=== PATIENT | female | born 1980 | race Caucasian/White ===

== ENCOUNTER 2017-04-04 00:31 | Emergency (ER) | payer OTHER ==
[2017-04-04 00:41] VITALS: RESP 16; TEMP 97.9
[2017-04-04] MEDS ORDERED: NS 1,000 ML IV ONE ×2 (00:57→02:09)
[2017-04-04 01:08] LABS: % IMMATURE GRANULYOCYTES 0.2 % (0.0-1.1); ABSOLUTE IMMATURE GRANULOCYTES 0.02 10^3/uL (0.00-0.10); ADD DIFF? NO; ADD MORPH? NO; ADD SCAN? NO; ATYPICAL LYMPHOCYTE FLAG 0 (0-99); FRAGMENT RBC FLAG 0 (0-99); HEMATOCRIT 38.7 % (38.0-47.0); HEMOGLOBIN 13.6 g/dL (12.6-16.3); LEFT SHIFT FLG 0 (0-99); LIPEMIA HEMOLYSIS FLAG 90 (0-99); MEAN CELL HEMOGLOBIN 32.2 pg (27.9-34.1); MEAN CELL HEMOGLOBIN CONCENTR. 35.1 g/dL (32.4-36.7); MEAN CELL VOLUME 91.5 fL (81.5-99.8); PLATELET CLUMPS FLAG 0 (0-99); PLATELET COUNT 184 10^3/uL (150-400); RED BLOOD CELL COUNT 4.23 10^6/uL (4.18-5.33); RED CELL DISTRIBUTION WIDTH 12.3 % (11.5-15.2)
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
[2017-04-04 01:13] LABS: ANION GAP 14 mEq/L (8-16); CALCIUM 8.6 mg/dL (8.5-10.4); CARBON DIOXIDE 23 mEq/l (22-31); CHLORIDE 109 mEq/L (97-110); CREATININE 0.7 mg/dL (0.6-1.0); ETHANOL SERUM 142 mg/dL (0-10); GLOMERULAR FILTRATION RATE > 60; GLUCOSE 93 mg/dL (70-100); POTASSIUM 3.9 mEq/L (3.5-5.2); SODIUM 146 mEq/L (134-144)
--- NOTE | 2017-04-04 01:20 | CPEKG ---
Heart Rate: 57 RR Interval: 1053 P-R Interval: 196 QRSD Interval: 92 QT Interval: 464 QTC Interval: 452 P [place]: 58 QRS [place]: 73 T Wave [place]: 35 EKG Severity - NORMAL ECG - EKG Impression: SINUS RHYTHM Electronically Signed By: Rylan Gutierrez 04-Apr-2017 07:08:42
[2017-04-04] MEDS ORDERED: MECLIZINE HCL 25 MG TAB PO ONE (03:11)
[2017-04-04 04:13] VITALS: BP 102/58; PULSE 66; O2SAT 96
== END 2017-04-04 04:13 | disposition home or self-care (01) ==
DX: R42 Dizziness and giddiness (principal); E86.9 Volume depletion, unspecified
CPT/HCPCS: 80305; G0480